=== PATIENT | male | born 1940 | race Caucasian/White ===

== ENCOUNTER 2024-01-18 22:58 | Inpatient (IN) | payer MEDICARE, OTHER ==
[~2024-01-18] VITALS: Ht 170.2 cm; Wt 86.2 kg
[2024-01-18 23:27] LABS: APPEARANCE,URINE CLEAR (CLEAR); BILIRUBIN,URINE NEGATIVE (NEGATIVE); BLOOD, URINE NEGATIVE Ery/uL (NEGATIVE); COLOR,URINE YELLOW (YELLOW); KETONES,URINE NEGATIVE (NEGATIVE); LEUKOCYTE ESTERASE ,URINE NEGATIVE (NEGATIVE); NITRITE, URINE NEGATIVE (NEGATIVE); PH,URINE 7.5 (5.0-8.0); PROTEIN,URINE NEGATIVE (NEGATIVE); UGLUCOSE NEGATIVE (NEGATIVE); UROBILINOGEN,URINE 0.2 EU/dL (0.2)
[2024-01-18 23:34] LABS: BASOPHILS % (AUTO) 0.4 % (0.0-2.0); EOSINOPHILS % (AUTO) 0.5 % (0.0-6.0); HEMATOCRIT 34 % (39-51); HEMOGLOBIN 11.8 g/dL (13.5-17.5); LYMPHOCYTES # (AUTO) 1.2 K/uL (0.8-4.8); LYMPHOCYTES % (AUTO) 17.9 % (20.0-44.0); MEAN CORPUSCULAR HEMOGLOBIN 30 PG (26.0-33.0); MEAN CORPUSCULAR HGB CONC 35 g/dl (31.0-36.0); MEAN CORPUSCULAR VOLUME 87 fL (80-96); MONOCYTES # (AUTO) 0.4 K/uL (0.1-1.30); MONOCYTES % (AUTO) 6.6 % (2.0-12.0); NEUTROPHILS # (AUTO) 5.1 K/uL (1.8-8.9); NEUTROPHILS % (AUTO) 74.6 % (43.0-81.0); PLATELET COUNT (AUTO) 138 K/uL (150-450); RED BLOOD CELL COUNT(AUTO) 3.89 MIL/uL (4.5-6.0); WHITE BLOOD COUNT (AUTO) 6.8 K/uL (4.3-11.0)
[2024-01-18 23:41] LABS: AMPHETAMINE, URINE NEGATIVE (NEGATIVE); BARBITURATE, URINE NEGATIVE (NEGATIVE); BENZODIAZEPINE, URINE NEGATIVE (NEGATIVE); CANNABINOID, URINE NEGATIVE (NEGATIVE); COCCAINE, URINE NEGATIVE (NEGATIVE); OPIATE, URINE NEGATIVE (NEGATIVE); PHENCYCLIDINE SCREEN,URINE NEGATIVE (NEGATIVE)
[2024-01-18 23:47] LABS: ALANINE AMINOTRANSFERASE 21 U/L (12-78); ALBUMIN 3.2 g/dL (3.4-5.0); ALCOHOL, BLOOD < 3 mg/dL (0-10); ALKALINE PHOSPHATASE 55 U/L (46-116); ASPARTATE AMINOTRANSFERASE 16 U/L (15-37); BILIRUBIN,DIRECT 0.2 mg/dL (0.0-0.2); BILIRUBIN,TOTAL 0.7 mg/dL (0.2-1.0); CALCIUM, SERUM 8.4 mg/dL (8.5-10.1); CARBON DIOXIDE 33 mmol/L (21-32); CHLORIDE 109 mmol/L (98-107); GLUCOSE 148 mg/dL (74-106); POTASSIUM 3.6 mmol/L (3.5-5.1); SODIUM SERUM 143 mmol/L (136-145); TOTAL PROTEIN, SERUM 6.3 g/dL (6.4-8.2); UREA NITROGEN, BLOOD 23 mg/dL (7-18)
[2024-01-18 23:49] LABS: ACETAMINOPHEN <10 ug/ml (10-30); SALICYLATE < 0.2 mg/dL (2.8-20.0)
[2024-01-19] MEDS ORDERED: ATOR40TA PO (02:19)
[2024-01-19] MEDS ORDERED: SERT25TA PO (02:19)
[2024-01-19] MEDS ORDERED: AMIO100T4 PO (02:19)
[2024-01-19] MEDS ORDERED: TAMS-12 PO (02:19)
[2024-01-19] MEDS ORDERED: SACU1TAB PO (02:19)
[2024-01-19] MEDS ORDERED: ALBU2.5V38 IH (02:19)
[2024-01-19] MEDS ORDERED: APIX5TAB PO (02:19)
[2024-01-19] MEDS ORDERED: GABA-532 PO (02:19)
[2024-01-19] MEDS ORDERED: FAMO20TA8 PO (02:19)
[2024-01-19] MEDS ORDERED: ISOS10TA2 PO (02:19)
[2024-01-19] MEDS ORDERED: MONT10TA22 PO (02:19)
[2024-01-19] MEDS ORDERED: METO25TA6 PO (02:19)
[2024-01-19] MEDS ORDERED: DIVA250T4 PO (02:19)
[2024-01-19] MEDS ORDERED: LORA-259 PO (03:23)
[2024-01-19] MEDS ORDERED: CALC500T13 PO (03:25)
[2024-01-19] MEDS ORDERED: MULT-225 PO (03:26)
[2024-01-19] MEDS ORDERED: DOCU100C36 PO (03:27)
[2024-01-19] MEDS ORDERED: LORAZEPAM 0.5 MG TABLET PO PRN (03:30)
[2024-01-19] MEDS ORDERED: TEMAZEPAM 7.5 MG CAPSULE PO PRN (03:30)
[2024-01-19] MEDS ORDERED: MAGNESIUM HYDROXIDE 30 ML UDC PO PRN (03:30)
[2024-01-19] MEDS ORDERED: MAG HYDROX/AL HYDROX/SIMETH 30 ML UDC PO PRN (03:30)
[2024-01-19] MEDS: BLOOD SUGAR DIAGNOSTIC 1 EACH STRIP IN ONE (03:44)
[2024-01-19] MEDS ORDERED: DEXTROSE 50%-WATER 50 ML DISP.SYRIN IV PRN (06:30)
[2024-01-19 08:00] VITALS: BP 140/83; TEMP 97.7; O2SAT 96
[2024-01-19] MEDS: BLOOD SUGAR DIAGNOSTIC 1 EACH STRIP IN SCH (08:37)
[2024-01-19] MEDS ORDERED: MULT-213 PO (09:20)
[2024-01-19] MEDS ORDERED: ACET325T53 PO (09:20)
[2024-01-19] MEDS ORDERED: BISA10SU11 RC (09:20)
[2024-01-19] MEDS ORDERED: MAGN400O6 PO (09:20)
[2024-01-19] MEDS ORDERED: LORAZEPAM 1 MG TABLET PO PRN (10:30)
[2024-01-19] MEDS ORDERED: ALBUTEROL FS 2.5 MG/3 ML VIAL.NEB IH PRN (10:30)
[2024-01-19] MEDS ORDERED: BISACODYL SUPP (10 MG) 10 MG/SUPP.RECT SUPP.RECT RC PRN (10:30)
[2024-01-19] MEDS ORDERED: CALCIUM CARBONATE 500 MG TAB.CHEW PO PRN (10:30)
[2024-01-19] MEDS: APIXABAN 5 MG TABLET PO SCH (10:35)
[2024-01-19] MEDS: ISOSORBIDE DINITRATE (10MG) 10 MG TABLET PO SCH (12:07)
[2024-01-19] MEDS: ACETAMINOPHEN 325 MG TABLET PO PRN (12:07)
[2024-01-19] MEDS: GABAPENTIN 100 MG CAPSULE PO SCH (12:07)
[2024-01-19 16:00] VITALS: BP 138/96; TEMP 98; O2SAT 96
[2024-01-19] MEDS: FAMOTIDINE (20 MG) 20 MG TABLET PO SCH (16:32)
[2024-01-19] MEDS: SACUBITRIL/VALSARTAN 24/26MG TABLET PO SCH (16:32)
[2024-01-19] MEDS: METOPROLOL TARTRATE 25 MG TABLET PO SCH (16:32)
[2024-01-19] MEDS: Z GUARD REMEDY 4 OZ OINT TP PRN (16:39)
[2024-01-19 20:00] VITALS: BP 129/74; TEMP 98; O2SAT 99
[2024-01-19] MEDS: VALPROIC ACID 250 MG/5 ML UDC PO SCH (21:21)
[2024-01-19] MEDS: ATORVASTATIN 40 MG TABLET PO SCH (21:22)
[2024-01-19] MEDS: TAMSULOSIN 0.4 MG CAP.SR.24H PO SCH (21:22)
[2024-01-19] MEDS: AMIODARONE HCL 200 MG TABLET PO SCH (21:22)
[2024-01-19] MEDS: INSULIN REGULAR, HUMAN 100 UNIT/ML 3 ML VIAL SQ PRN (21:59)
[2024-01-20 08:00] VITALS: BP 129/65; TEMP 97.8; O2SAT 98
[2024-01-20] MEDS ORDERED: VALPROIC ACID 250 MG/5 ML UDC GT SCH (09:00)
[2024-01-20] MEDS: VALPROIC ACID 250 MG/5 ML UDC PO SCH (09:08)
[2024-01-20] MEDS: DOCUSATE SODIUM 100 MG CAPSULE PO SCH (09:08)
[2024-01-20] MEDS: MONTELUKAST SODIUM (10MG) 10 MG TABLET PO SCH (09:08)
[2024-01-20] MEDS: MULTIVIT W/MINERALS 1 TAB TABLET PO SCH (09:12)
[2024-01-20] MEDS: LORAZEPAM 0.5 MG TABLET PO PRN (13:13)
[2024-01-20 16:00] VITALS: BP 136/77; TEMP 98; O2SAT 96
[2024-01-20 20:35] VITALS: BP 134/78; TEMP 98; O2SAT 98
[2024-01-21 07:43] LABS: BASOPHILS % (AUTO) 0.6 % (0.0-2.0); EOSINOPHILS % (AUTO) 0.9 % (0.0-6.0); HEMATOCRIT 37 % (39-51); HEMOGLOBIN 12.9 g/dL (13.5-17.5); LYMPHOCYTES # (AUTO) 1.3 K/uL (0.8-4.8); MEAN CORPUSCULAR HEMOGLOBIN 30 PG (26.0-33.0); MEAN CORPUSCULAR HGB CONC 35 g/dl (31.0-36.0); MEAN CORPUSCULAR VOLUME 87 fL (80-96); MONOCYTES # (AUTO) 0.3 K/uL (0.1-1.30); MONOCYTES % (AUTO) 7.4 % (2.0-12.0); NEUTROPHILS # (AUTO) 2.5 K/uL (1.8-8.9); NEUTROPHILS % (AUTO) 60.1 % (43.0-81.0); PLATELET COUNT (AUTO) 149 K/uL (150-450); RED BLOOD CELL COUNT(AUTO) 4.31 MIL/uL (4.5-6.0); RED CELL DISTRIBUTION WIDTH 15.8 % (11.5-15.0); WHITE BLOOD COUNT (AUTO) 4.1 K/uL (4.3-11.0)
[2024-01-21 08:00] VITALS: BP 159/78; TEMP 98.4; O2SAT 93
[2024-01-21 08:05] LABS: THYROID STIMULATING HORMONE 14.93 uIU/mL (0.358-3.74)
[2024-01-21 13:56] LABS: CHOLESTEROL 158 mg/dL (<200); HDL CHOLESTEROL 67 mg/dL (40-60); LDL 72 mg/dL (0-99); TRIGLYCERIDES 57 mg/dL (30-150)
[2024-01-21 15:52] VITALS: BP 143/75; TEMP 98.6; O2SAT 96
[2024-01-21 20:36] VITALS: BP 156/86; TEMP 98.2; O2SAT 96
[2024-01-22 08:00] VITALS: BP 140/84; TEMP 98.7; O2SAT 96
[2024-01-22] MEDS: LEVOTHYROXINE SODIUM 50 MCG TABLET PO SCH (09:30)
[2024-01-22 16:00] VITALS: BP 158/79; TEMP 98; O2SAT 97
[2024-01-22 21:14] VITALS: BP 143/82; TEMP 98; O2SAT 96
[2024-01-22] MEDS: TEMAZEPAM 7.5 MG CAPSULE PO PRN (21:43)
[2024-01-23 07:09] LABS: BASOPHILS % (AUTO) 0.3 % (0.0-2.0); EOSINOPHILS % (AUTO) 0.6 % (0.0-6.0); HEMATOCRIT 38 % (39-51); HEMOGLOBIN 13.2 g/dL (13.5-17.5); LYMPHOCYTES # (AUTO) 1.4 K/uL (0.8-4.8); LYMPHOCYTES % (AUTO) 22.1 % (20.0-44.0); MEAN CORPUSCULAR HEMOGLOBIN 30 PG (26.0-33.0); MEAN CORPUSCULAR HGB CONC 34 g/dl (31.0-36.0); MEAN CORPUSCULAR VOLUME 89 fL (80-96); MONOCYTES # (AUTO) 0.5 K/uL (0.1-1.30); MONOCYTES % (AUTO) 7.9 % (2.0-12.0); NEUTROPHILS # (AUTO) 4.4 K/uL (1.8-8.9); NEUTROPHILS % (AUTO) 69.1 % (43.0-81.0); PLATELET COUNT (AUTO) 132 K/uL (150-450); RED BLOOD CELL COUNT(AUTO) 4.33 MIL/uL (4.5-6.0); RED CELL DISTRIBUTION WIDTH 16.1 % (11.5-15.0); WHITE BLOOD COUNT (AUTO) 6.4 K/uL (4.3-11.0)
[2024-01-23 07:49] LABS: CALCIUM, SERUM 9.2 mg/dL (8.5-10.1); CARBON DIOXIDE 29 mmol/L (21-32); CHLORIDE 106 mmol/L (98-107); CREATININE 1.1 mg/dL (0.6-1.3); GLUCOSE 139 mg/dL (74-106); PHOSPHORUS 3.9 mg/dL (2.5-4.9); POTASSIUM 3.6 mmol/L (3.5-5.1); SODIUM SERUM 143 mmol/L (136-145); UREA NITROGEN, BLOOD 29 mg/dL (7-18)
[2024-01-23 08:00] VITALS: BP 130/81; TEMP 98.7; O2SAT 97
[2024-01-23 09:08] LABS: FOLIC ACID 9.5 ng/mL (>3.0)
[2024-01-23 16:00] VITALS: BP 124/90; TEMP 98.7; O2SAT 97
[2024-01-24 08:00] VITALS: BP 104/66; TEMP 98.7; O2SAT 97
[2024-01-24 16:00] VITALS: BP 100/56; TEMP 98.7; O2SAT 98
[2024-01-24 20:00] VITALS: BP 149/76; TEMP 98.5; O2SAT 96
[2024-01-25 08:00] VITALS: BP 138/64; TEMP 97.7; O2SAT 96
[2024-01-25 16:29] VITALS: BP_SYST 136; BP_SYST 138; BP_DIAS 117; BP_DIAS 64; TEMP 97.9; O2SAT 97
[2024-01-25 20:00] VITALS: BP 144/87; TEMP 98.2; O2SAT 96
[2024-01-26 08:00] VITALS: BP 109/74; TEMP 97.7; O2SAT 98
[2024-01-26] MEDS: FUROSEMIDE 20 MG TABLET PO SCH (13:36)
[2024-01-26 16:00] VITALS: BP 133/82; TEMP 98.7; O2SAT 97
[2024-01-26 20:00] VITALS: BP 142/89; TEMP 98.3; O2SAT 95
[2024-01-27 08:00] VITALS: BP 111/85; TEMP 97.8; O2SAT 97
[2024-01-27 16:00] VITALS: BP 123/62; TEMP 98.2; O2SAT 97
[2024-01-27 17:02] LABS: BASOPHILS % (AUTO) 0.4 % (0.0-2.0); EOSINOPHILS % (AUTO) 0.3 % (0.0-6.0); HEMATOCRIT 38 % (39-51); LYMPHOCYTES # (AUTO) 1.5 K/uL (0.8-4.8); LYMPHOCYTES % (AUTO) 20.6 % (20.0-44.0); MEAN CORPUSCULAR HEMOGLOBIN 30 PG (26.0-33.0); MEAN CORPUSCULAR HGB CONC 35 g/dl (31.0-36.0); MEAN CORPUSCULAR VOLUME 87 fL (80-96); MONOCYTES # (AUTO) 0.4 K/uL (0.1-1.30); MONOCYTES % (AUTO) 5.9 % (2.0-12.0); NEUTROPHILS # (AUTO) 5.2 K/uL (1.8-8.9); NEUTROPHILS % (AUTO) 72.8 % (43.0-81.0); PLATELET COUNT (AUTO) 159 K/uL (150-450); RED BLOOD CELL COUNT(AUTO) 4.32 MIL/uL (4.5-6.0); RED CELL DISTRIBUTION WIDTH 15.9 % (11.5-15.0); WHITE BLOOD COUNT (AUTO) 7.1 K/uL (4.3-11.0)
[2024-01-27 17:24] LABS: CALCIUM, SERUM 9.1 mg/dL (8.5-10.1); CREATININE 1.6 mg/dL (0.6-1.3); POTASSIUM 3.8 mmol/L (3.5-5.1)
[2024-01-27 20:48] VITALS: BP 119/72; TEMP 98.2; O2SAT 97
[2024-01-28 08:00] VITALS: BP 126/82; TEMP 97.6; O2SAT 100
[2024-01-28 16:08] VITALS: BP 92/72; TEMP 97.8; O2SAT 96
[2024-01-28 20:27] VITALS: BP 140/89; TEMP 98; O2SAT 97
[2024-01-29 08:00] VITALS: BP 149/82; TEMP 97.9; O2SAT 98
[2024-01-29 16:00] VITALS: BP 140/87; TEMP 98.6; O2SAT 100
[2024-01-29 21:19] VITALS: BP 141/81; TEMP 98.6; O2SAT 96
[2024-01-30 07:29] LABS: CALCIUM, SERUM 8.4 mg/dL (8.5-10.1); CARBON DIOXIDE 32 mmol/L (21-32); CHLORIDE 105 mmol/L (98-107); CREATININE 1.4 mg/dL (0.6-1.3); GLUCOSE 145 mg/dL (74-106); POTASSIUM 3.8 mmol/L (3.5-5.1); SODIUM SERUM 143 mmol/L (136-145); UREA NITROGEN, BLOOD 35 mg/dL (7-18)
[2024-01-30 07:50] LABS: VALPROIC ACID 46 ug/mL (50-100)
[2024-01-30 08:00] VITALS: BP 137/70; TEMP 98.7; O2SAT 100
[2024-01-30 16:00] VITALS: BP 137/67; TEMP 98.6; O2SAT 98
[2024-01-30 21:16] VITALS: BP 123/66; TEMP 98.9; O2SAT 97
[2024-01-31 08:00] VITALS: BP 151/94; TEMP 98; O2SAT 98
[2024-01-31 16:00] VITALS: BP 160/86; TEMP 98.6; O2SAT 98
[2024-01-31 20:32] VITALS: BP 145/129; TEMP 98.3; O2SAT 97
[2024-01-31 21:25] VITALS: BP 147/76; TEMP 98; O2SAT 97
[2024-02-01 08:31] VITALS: BP 158/100; TEMP 98.4; O2SAT 98
[2024-02-01 08:47] VITALS: BP 126/68
[2024-02-01 12:51] VITALS: BP 120/75
== END 2024-02-01 13:45 | DRG 885 ==
LOC: ER 23:18 → GPS 01-19 01:13
PROVIDERS: ADMIT Psychiatry & Neurology Psychosomatic Medicine; ATTEND Nurse Practitioner Acute Care
DX: F39 Unspecified mood [affective] disorder (principal); I11.0 Hypertensive heart disease with heart failure; N17.0 Acute kidney failure with tubular necrosis; G93.41 Metabolic encephalopathy; D68.69 Other thrombophilia; E44.1 Mild protein-calorie malnutrition; F03.93 Unspecified dementia, unspecified severity, with mood disturbance; I42.9 Cardiomyopathy, unspecified; R47.01 Aphasia; I50.22 Chronic systolic (congestive) heart failure; F33.9 Major depressive disorder, recurrent, unspecified; F29 Unspecified psychosis not due to a substance or known physiological condition; E78.5 Hyperlipidemia, unspecified; F03.90 Unspecified dementia, unspecified severity, without behavioral disturbance, psychotic disturbance, mood disturbance, and anxiety; D64.9 Anemia, unspecified; E03.9 Hypothyroidism, unspecified; E66.01 Morbid (severe) obesity due to excess calories; E88.09 Other disorders of plasma-protein metabolism, not elsewhere classified; Z86.73 Personal history of transient ischemic attack (TIA), and cerebral infarction without residual deficits; Z95.0 Presence of cardiac pacemaker; Z20.822 Contact with and (suspected) exposure to COVID-19; E11.40 Type 2 diabetes mellitus with diabetic neuropathy, unspecified; R13.10 Dysphagia, unspecified; Z68.29 Body mass index [BMI] 29.0-29.9, adult; Z73.6 Limitation of activities due to disability; N40.0 Benign prostatic hyperplasia without lower urinary tract symptoms; I48.91 Unspecified atrial fibrillation
CPT/HCPCS: 36415; 70450-TC; 71045-TC; 80048-TC; 80061-TC; 80076-TC; 80164-TC; 82607-TC; 82962-TC; 83735-TC; 83880; 83921; 84100-TC; 84425; 84439-TC; 84443-TC; 85025-TC; 87081-TC; 92526; 92611-TC; 93307-TC; 94760-TC; 97110-TC; 97112-TC; 97116-TC; 97530-TC; G0480; J1815

== ENCOUNTER 2024-07-21 15:00 | Inpatient (IN) | payer MEDICARE, MEDICAID ==
[~2024-07-21] VITALS: Ht 165.1 cm; Wt 83.0 kg
[~2024-07-21 15:00] MED LIST: ACET325T53 PO; ALBU2.5V38 IH; AMIO100T4 PO; APIX5TAB PO; ATOR40TA PO; BISA10SU11 RC; CALC500T13 PO; DIVA250T4 PO; DOCU100C36 PO; FAMO20TA8 PO; GABA-532 PO; ISOS10TA2 PO; LORA-259 PO; MAGN400O6 PO; METO25TA6 PO; MONT10TA22 PO; MULT-213 PO; SACU1TAB PO; SERT25TA PO; TAMS-12 PO
[2024-07-21 15:27] LABS: BASOPHILS % (AUTO) 0.5 % (0.0-2.0); EOSINOPHILS % (AUTO) 0.5 % (0.0-6.0); HEMATOCRIT 38 % (39-51); HEMOGLOBIN 12.8 g/dL (13.5-17.5); LYMPHOCYTES # (AUTO) 1.5 K/uL (0.8-4.8); LYMPHOCYTES % (AUTO) 22.6 % (20.0-44.0); MEAN CORPUSCULAR HEMOGLOBIN 32 PG (26.0-33.0); MEAN CORPUSCULAR HGB CONC 34 g/dl (31.0-36.0); MEAN CORPUSCULAR VOLUME 94 fL (80-96); MONOCYTES # (AUTO) 0.4 K/uL (0.1-1.30); MONOCYTES % (AUTO) 6.7 % (2.0-12.0); NEUTROPHILS # (AUTO) 4.5 K/uL (1.8-8.9); NEUTROPHILS % (AUTO) 69.7 % (43.0-81.0); PLATELET COUNT (AUTO) 168 K/uL (150-450); RED BLOOD CELL COUNT(AUTO) 4.06 MIL/uL (4.5-6.0); RED CELL DISTRIBUTION WIDTH 15.3 % (11.5-15.0); WHITE BLOOD COUNT (AUTO) 6.5 K/uL (4.3-11.0)
[2024-07-21] MEDS ORDERED: AMLO-212 PO (15:33)
[2024-07-21] MEDS ORDERED: ACET-73 PO (15:33)
[2024-07-21] MEDS ORDERED: EMPA10TA PO (15:33)
[2024-07-21] MEDS ORDERED: LEVO75TA7 PO (15:33)
[2024-07-21] MEDS ORDERED: FURO20TA4 PO (15:33)
[2024-07-21] MEDS ORDERED: FINA5TAB11 PO (15:33)
[2024-07-21] MEDS ORDERED: MAG30ORA PO (15:33)
[2024-07-21] MEDS ORDERED: TEMA7.5C PO (15:33)
[2024-07-21 15:35] LABS: CALCIUM, SERUM 8.7 mg/dL (8.5-10.1); CARBON DIOXIDE 30 mmol/L (21-32); CHLORIDE 105 mmol/L (98-107); CREATININE 1.3 mg/dL (0.6-1.3); GLUCOSE 182 mg/dL (74-106); POTASSIUM 3.7 mmol/L (3.5-5.1); SODIUM SERUM 140 mmol/L (136-145); UREA NITROGEN, BLOOD 31 mg/dL (7-18)
[2024-07-21 15:44] LABS: ACETAMINOPHEN < 10 ug/ml (10-30); ALANINE AMINOTRANSFERASE 7 U/L (12-78); ALBUMIN 3.4 g/dL (3.4-5.0); ALCOHOL, BLOOD < 3 mg/dL (0-10); ALKALINE PHOSPHATASE 50 U/L (46-116); ASPARTATE AMINOTRANSFERASE 8 U/L (15-37); BILIRUBIN,DIRECT 0.2 mg/dL (0.0-0.2); BILIRUBIN,TOTAL 0.5 mg/dL (0.2-1.0); TOTAL PROTEIN, SERUM 6.9 g/dL (6.4-8.2)
[2024-07-21 15:45] LABS: SALICYLATE 1.1 mg/dL (2.8-20.0)
[2024-07-21 18:35] LABS: APPEARANCE,URINE SLIGHTLY CLOUDY (CLEAR); BILIRUBIN,URINE NEGATIVE (NEGATIVE); BLOOD, URINE 2+ Ery/uL (NEGATIVE); COLOR,URINE YELLOW (YELLOW); KETONES,URINE NEGATIVE (NEGATIVE); LEUKOCYTE ESTERASE ,URINE 1+ (NEGATIVE); NITRITE, URINE NEGATIVE (NEGATIVE); PROTEIN,URINE 1+ mg/dl (NEGATIVE); UGLUCOSE 3+ mg/dL (NEGATIVE)
[2024-07-21 18:44] LABS: AMPHETAMINE, URINE NEGATIVE (NEGATIVE); BARBITURATE, URINE NEGATIVE (NEGATIVE); BENZODIAZEPINE, URINE NEGATIVE (NEGATIVE); CANNABINOID, URINE NEGATIVE (NEGATIVE); COCCAINE, URINE NEGATIVE (NEGATIVE); OPIATE, URINE NEGATIVE (NEGATIVE); PHENCYCLIDINE SCREEN,URINE NEGATIVE (NEGATIVE)
[2024-07-21 18:52] LABS: WBC,URINE TOO NUMEROUS TO COUN /HPF (0-3)
[2024-07-21 18:53] LABS: ADD URINE CULTURE YES; BACTERIA,URINE Many /HPF (None Seen); RBC,URINE TOO NUMEROUS TO COUN /HPF (0-2); SQUAMOUS EPITHELIAL CELL,UR Few /HPF (None Seen)
[2024-07-21] MEDS ORDERED: NITROFURANTOIN/MONOHYDRATE MACROCRYSTALS 100 MG CAPSULE ONE (20:35)
[2024-07-21] MEDS: NITROFURANTOIN/MONOHYDRATE MACROCRYSTALS 100 MG CAPSULE PO ONE (20:40)
[2024-07-21] MEDS: BLOOD SUGAR DIAGNOSTIC 1 EACH STRIP IN ONE (21:53)
[2024-07-21] MEDS ORDERED: ACETAMINOPHEN 325 MG TABLET PO PRN (22:00)
[2024-07-21] MEDS ORDERED: MAGNESIUM HYDROXIDE 30 ML UDC PO PRN ×2 (22:00)
[2024-07-21] MEDS ORDERED: MAG HYDROX/AL HYDROX/SIMETH 30 ML UDC PO PRN (22:00)
[2024-07-21] MEDS: TAMSULOSIN 0.4 MG CAP.SR.24H PO SCH (22:25)
[2024-07-21] MEDS: LORAZEPAM 0.5 MG TABLET PO PRN (22:26)
[2024-07-21] MEDS: ATORVASTATIN 40 MG TABLET PO SCH (22:26)
[2024-07-22] MEDS: TEMAZEPAM 7.5 MG CAPSULE PO PRN ×2 (02:08→21:49)
[2024-07-22 02:12] VITALS: BP 136/90; TEMP 98.2; O2SAT 97
[2024-07-22] MEDS: LEVOTHYROXINE SODIUM 75 MCG TABLET PO SCH (07:30)
[2024-07-22 08:00] VITALS: BP 125/68; TEMP 97.7; O2SAT 98
[2024-07-22] MEDS: AMLODIPINE BESYLATE 5 MG TABLET PO SCH (09:00)
[2024-07-22] MEDS: FAMOTIDINE (20 MG) 20 MG TABLET PO SCH (09:00)
[2024-07-22] MEDS: SACUBITRIL/VALSARTAN 24/26MG TABLET PO SCH (09:00)
[2024-07-22] MEDS: DOCUSATE SODIUM 100 MG CAPSULE PO SCH (09:00)
[2024-07-22] MEDS: APIXABAN 5 MG TABLET PO SCH (09:00)
[2024-07-22] MEDS: MONTELUKAST SODIUM (10MG) 10 MG TABLET PO SCH (09:00)
[2024-07-22] MEDS: FUROSEMIDE 20 MG TABLET PO SCH (09:00)
[2024-07-22] MEDS: FINASTERIDE (5 MG) 5 MG TABLET PO SCH (09:00)
[2024-07-22] MEDS: NITROFURANTOIN/MONOHYDRATE MACROCRYSTALS 100 MG CAPSULE PO SCH (09:00)
[2024-07-22] MEDS: METOPROLOL TARTRATE 25 MG TABLET PO SCH (09:00)
[2024-07-22] MEDS: AMIODARONE HCL 200 MG TABLET PO SCH (09:00)
[2024-07-22] MEDS: ISOSORBIDE DINITRATE (10MG) 10 MG TABLET PO SCH (09:00)
[2024-07-22 13:18] LABS: ALANINE AMINOTRANSFERASE < 6 U/L (12-78); ALBUMIN 3.7 g/dL (3.4-5.0); ALKALINE PHOSPHATASE 54 U/L (46-116); ASPARTATE AMINOTRANSFERASE 7 U/L (15-37); BILIRUBIN,TOTAL 0.5 mg/dL (0.2-1.0); CALCIUM, SERUM 8.8 mg/dL (8.5-10.1); CARBON DIOXIDE 27 mmol/L (21-32); CHLORIDE 103 mmol/L (98-107); CREATININE 1.1 mg/dL (0.6-1.3); GLUCOSE 211 mg/dL (74-106); POTASSIUM 3.7 mmol/L (3.5-5.1); SODIUM SERUM 138 mmol/L (136-145); TOTAL PROTEIN, SERUM 7.4 g/dL (6.4-8.2); UREA NITROGEN, BLOOD 28 mg/dL (7-18)
[2024-07-22 13:32] LABS: CHOLESTEROL 139 mg/dL (<200); HDL CHOLESTEROL 70 mg/dL (40-60); LDL 57 mg/dL (0-99); TRIGLYCERIDES 54 mg/dL (30-150)
[2024-07-22 15:37] VITALS: BP 138/91; TEMP 97.7; O2SAT 98
[2024-07-22 16:00] VITALS: BP 138/91; TEMP 97.7; O2SAT 98
[2024-07-22] MEDS: DIVALPROEX SODIUM 125 MG CAP.SPRINK PO SCH (16:18)
[2024-07-22 20:20] VITALS: BP 131/90; TEMP 97.8; O2SAT 95
[2024-07-22] MEDS ORDERED: DIVALPROEX SODIUM 125 MG CAP.SPRINK PO SCH (21:00)
[2024-07-23 08:00] VITALS: BP 143/90; TEMP 97.8; O2SAT 97
[2024-07-23 16:00] VITALS: BP 115/79; TEMP 99; O2SAT 99
[2024-07-23 20:19] VITALS: BP 118/87; TEMP 98.4; O2SAT 99
[2024-07-23] MEDS ORDERED: QUETIAPINE FUMARATE 25 MG TABLET PO SCH (22:00)
[2024-07-24 08:00] VITALS: BP 130/65; TEMP 98.1; O2SAT 99
[2024-07-24] MEDS: LORAZEPAM 0.5 MG TABLET PO PRN (13:24)
[2024-07-24 15:58] VITALS: TEMP 98.1; O2SAT 99
[2024-07-24 20:05] VITALS: BP 128/83; TEMP 98.4; O2SAT 100
[2024-07-25 08:00] VITALS: BP 152/68; TEMP 98; O2SAT 97
[2024-07-25 16:00] VITALS: BP 115/86; TEMP 98.6; O2SAT 99
[2024-07-25 20:00] VITALS: BP 143/80; TEMP 97.5; O2SAT 98
[2024-07-26 07:57] LABS: VALPROIC ACID 35 ug/mL (50-100)
[2024-07-26 08:00] VITALS: BP 139/67; TEMP 97.8; O2SAT 98
[2024-07-26 08:20] LABS: SERUM AMMONIA 14 umol/L (11-32)
[2024-07-26 16:00] VITALS: BP 112/82; TEMP 97.5; O2SAT 97
[2024-07-26 20:59] VITALS: BP 138/69; TEMP 97.8; O2SAT 98
[2024-07-27 08:00] VITALS: BP 113/68; TEMP 97.6; O2SAT 97
[2024-07-27 15:23] LABS: APPEARANCE,URINE CLEAR (CLEAR); BILIRUBIN,URINE NEGATIVE (NEGATIVE); BLOOD, URINE 1+ Ery/uL (NEGATIVE); COLOR,URINE DARK YELLOW (YELLOW); KETONES,URINE TRACE mg/dL (NEGATIVE); LEUKOCYTE ESTERASE ,URINE TRACE (NEGATIVE); NITRITE, URINE NEGATIVE (NEGATIVE); PH,URINE 5.5 (5.0-8.0); PROTEIN,URINE 2+ mg/dl (NEGATIVE); UGLUCOSE 2+ mg/dL (NEGATIVE); UROBILINOGEN,URINE 0.2 EU/dL (0.2)
[2024-07-27 15:48] LABS: ADD URINE CULTURE YES; BACTERIA,URINE Few /HPF (None Seen)
[2024-07-27 15:49] LABS: MUCUS,URINE Few /LPF (None Seen)
[2024-07-27 16:00] VITALS: BP 124/71; TEMP 98.6; O2SAT 98
[2024-07-27 20:12] VITALS: BP 127/92; TEMP 98; O2SAT 96
[2024-07-28 07:44] LABS: CALCIUM, SERUM 8.7 mg/dL (8.5-10.1); CREATININE 1.3 mg/dL (0.6-1.3); POTASSIUM 3.8 mmol/L (3.5-5.1)
[2024-07-28 08:00] VITALS: BP 100/55; TEMP 98.6; O2SAT 100
[2024-07-28 08:00] LABS: THYROID STIMULATING HORMONE 13.32 uIU/mL (0.358-3.74)
[2024-07-28 15:24] VITALS: BP 111/67; TEMP 97.7; O2SAT 95
[2024-07-28 20:46] VITALS: BP 136/62; TEMP 97.7; O2SAT 98
[2024-07-29] MEDS: LEVOTHYROXINE SODIUM 88 MCG TABLET PO SCH (07:30)
[2024-07-29 08:00] VITALS: BP 128/75; TEMP 98.6; O2SAT 98
[2024-07-29 16:00] VITALS: BP 132/87; TEMP 98.8; O2SAT 100
[2024-07-29 20:30] VITALS: BP 149/76; TEMP 98.3; O2SAT 97
[2024-07-30 08:00] VITALS: BP 144/84; TEMP 97.8; O2SAT 97
[2024-07-30] MEDS: DIVALPROEX SODIUM 125 MG CAP.SPRINK PO SCH (12:24)
[2024-07-30 16:02] VITALS: BP 141/95; TEMP 97.8; O2SAT 97
[2024-07-30 20:16] VITALS: BP 124/71; TEMP 97.8; O2SAT 98
[2024-07-31 08:00] VITALS: BP 128/82; TEMP 98.1; O2SAT 98
[2024-07-31] MEDS: ACETAMINOPHEN 325 MG TABLET PO PRN (09:06)
[2024-07-31 12:24] LABS: BASOPHILS # (AUTO) 0.1 K/uL (0.0-0.2); BASOPHILS % (AUTO) 1.3 % (0.0-2.0); EOSINOPHILS # (AUTO) 0.9 K/uL (0.0-0.7); EOSINOPHILS % (AUTO) 11.9 % (0.0-6.0); HEMATOCRIT 43 % (39-51); HEMOGLOBIN 13.7 g/dL (13.5-17.5); LYMPHOCYTES # (AUTO) 1.4 K/uL (0.8-4.8); LYMPHOCYTES % (AUTO) 18.2 % (20.0-44.0); MEAN CORPUSCULAR HEMOGLOBIN 22 PG (26.0-33.0); MEAN CORPUSCULAR HGB CONC 32 g/dl (31.0-36.0); MEAN CORPUSCULAR VOLUME 69 fL (80-96); MONOCYTES # (AUTO) 0.6 K/uL (0.1-1.30); MONOCYTES % (AUTO) 7.9 % (2.0-12.0); NEUTROPHILS # (AUTO) 4.6 K/uL (1.8-8.9); NEUTROPHILS % (AUTO) 60.7 % (43.0-81.0); PLATELET COUNT (AUTO) 261 K/uL (150-450); WHITE BLOOD COUNT (AUTO) 7.6 K/uL (4.3-11.0)
[2024-07-31 12:27] LABS: CALCIUM, SERUM 8.9 mg/dL (8.5-10.1); CREATININE 0.6 mg/dL (0.6-1.3); POTASSIUM 4.7 mmol/L (3.5-5.1)
[2024-07-31 12:33] LABS: ALBUMIN 3.9 g/dL (3.4-5.0); BILIRUBIN,TOTAL 0.4 mg/dL (0.2-1.0); TOTAL PROTEIN, SERUM 7.7 g/dL (6.4-8.2)
[2024-07-31 16:00] VITALS: BP 108/83; TEMP 98.2; O2SAT 98
[2024-07-31] MEDS ORDERED: DIVALPROEX SODIUM 250 MG TABLET.DR PO SCH (17:00)
[2024-07-31 19:57] VITALS: BP 118/84; TEMP 98.2; O2SAT 99
[2024-08-01 08:00] VITALS: BP 137/72; TEMP 97.8; O2SAT 94
[2024-08-01 08:19] LABS: BASOPHILS % (AUTO) 0.5 % (0.0-2.0); EOSINOPHILS # (AUTO) 0.1 K/uL (0.0-0.7); EOSINOPHILS % (AUTO) 0.9 % (0.0-6.0); HEMATOCRIT 36 % (39-51); HEMOGLOBIN 12.3 g/dL (13.5-17.5); LYMPHOCYTES % (AUTO) 29.3 % (20.0-44.0); MEAN CORPUSCULAR HEMOGLOBIN 32 PG (26.0-33.0); MEAN CORPUSCULAR HGB CONC 34 g/dl (31.0-36.0); MEAN CORPUSCULAR VOLUME 92 fL (80-96); MONOCYTES # (AUTO) 0.5 K/uL (0.1-1.30); MONOCYTES % (AUTO) 6.5 % (2.0-12.0); NEUTROPHILS # (AUTO) 4.4 K/uL (1.8-8.9); NEUTROPHILS % (AUTO) 62.8 % (43.0-81.0); PLATELET COUNT (AUTO) 152 K/uL (150-450); RED CELL DISTRIBUTION WIDTH 14.9 % (11.5-15.0)
[2024-08-01] MEDS: DIVALPROEX SODIUM 125 MG CAP.SPRINK PO SCH (08:50)
[2024-08-01 08:51] VITALS: BP 137/72
[2024-08-01 09:40] LABS: CALCIUM, SERUM 8.7 mg/dL (8.5-10.1); POTASSIUM 3.7 mmol/L (3.5-5.1)
== END 2024-08-01 13:20 | DRG 885 ==
LOC: ER 15:13 → GPS 20:03
PROVIDERS: ADMIT Psychiatry & Neurology Psychosomatic Medicine; ATTEND Internal Medicine
DX: F39 Unspecified mood [affective] disorder (principal); N17.0 Acute kidney failure with tubular necrosis; N39.0 Urinary tract infection, site not specified; I42.9 Cardiomyopathy, unspecified; F03.93 Unspecified dementia, unspecified severity, with mood disturbance; F33.9 Major depressive disorder, recurrent, unspecified; I13.0 Hypertensive heart and chronic kidney disease with heart failure and stage 1 through stage 4 chronic kidney disease, or unspecified chronic kidney disease; I50.22 Chronic systolic (congestive) heart failure; F29 Unspecified psychosis not due to a substance or known physiological condition; I48.91 Unspecified atrial fibrillation; D64.9 Anemia, unspecified; E03.9 Hypothyroidism, unspecified; E66.9 Obesity, unspecified; E78.5 Hyperlipidemia, unspecified; Z79.01 Long term (current) use of anticoagulants; Z79.84 Long term (current) use of oral hypoglycemic drugs; Z79.899 Other long term (current) drug therapy; Z95.0 Presence of cardiac pacemaker; I48.0 Paroxysmal atrial fibrillation; Z20.822 Contact with and (suspected) exposure to COVID-19; F03.90 Unspecified dementia, unspecified severity, without behavioral disturbance, psychotic disturbance, mood disturbance, and anxiety; R73.03 Prediabetes; Z73.6 Limitation of activities due to disability; Z68.30 Body mass index [BMI] 30.0-30.9, adult; N40.1 Benign prostatic hyperplasia with lower urinary tract symptoms; E86.9 Volume depletion, unspecified
CPT/HCPCS: 36415; 71045-TC; 80048-TC; 80053-TC; 80061-TC; 80076-TC; 80164-TC; 81001; 82140-TC; 82962-TC; 84443-TC; 85025-TC; 87081-TC; 87086-TC; 97110-TC; 97112-TC; 97116-TC; 97530-TC; G0480

== ENCOUNTER 2024-09-02 13:38 | Inpatient (IN) | payer MEDICARE, OTHER ==
[~2024-09-02] VITALS: Ht 167.6 cm; Wt 78.0 kg
[~2024-09-02 13:38] MED LIST changes: +ACET-73 PO; -ALBU2.5V38 IH; +AMLO-212 PO; +EMPA10TA PO; +FINA5TAB11 PO; +FURO20TA4 PO; -GABA-532 PO; +LEVO75TA7 PO; +MAG30ORA PO; -SERT25TA PO; +TEMA7.5C PO
[2024-09-02 14:05] LABS: PLATELET COUNT (AUTO) 179 K/uL (150-450); RED BLOOD CELL COUNT(AUTO) 4.27 MIL/uL (4.5-6.0); RED CELL DISTRIBUTION WIDTH 15.1 % (11.5-15.0); WHITE BLOOD COUNT (AUTO) 7.1 K/uL (4.3-11.0)
[2024-09-02 14:14] LABS: CALCIUM, SERUM 8.6 mg/dL (8.5-10.1); CREATININE 1.1 mg/dL (0.6-1.3); SODIUM SERUM 143 mmol/L (136-145); UREA NITROGEN, BLOOD 36 mg/dL (7-18)
[2024-09-02 14:20] LABS: ALCOHOL, BLOOD < 3 mg/dL (0-10); ASPARTATE AMINOTRANSFERASE 8 U/L (15-37); TOTAL PROTEIN, SERUM 6.9 g/dL (6.4-8.2)
[2024-09-02] MEDS ORDERED: OLANZAPINE 10 MG VIAL IM ONE (14:23)
[2024-09-02] MEDS: OLANZAPINE 10 MG VIAL IM ONE (14:27)
[2024-09-02] MEDS ORDERED: LEVO88TA5 PO (16:15)
[2024-09-02] MEDS ORDERED: GLUC1KIT IN (16:15)
[2024-09-02 16:40] LABS: APPEARANCE,URINE CLEAR (CLEAR); BLOOD, URINE Moderate Ery/uL (NEGATIVE); LEUKOCYTE ESTERASE ,URINE Trace (NEGATIVE); UGLUCOSE >=1000 mg/dL (NEGATIVE)
[2024-09-02 16:41] LABS: NITRITE, URINE NEGATIVE (NEGATIVE)
[2024-09-02 16:42] LABS: ADD URINE CULTURE YES; SQUAMOUS EPITHELIAL CELL,UR None Seen /HPF (None Seen); URINE AMORPHOUS PHOSPHATES Few /HPF (None Seen)
[2024-09-02 17:03] LABS: AMPHETAMINE, URINE NEGATIVE (NEGATIVE); BARBITURATE, URINE NEGATIVE (NEGATIVE); BENZODIAZEPINE, URINE NEGATIVE (NEGATIVE); CANNABINOID, URINE NEGATIVE (NEGATIVE); COCCAINE, URINE NEGATIVE (NEGATIVE); OPIATE, URINE NEGATIVE (NEGATIVE)
[2024-09-02] MEDS ORDERED: ACETAMINOPHEN 325 MG TABLET PO PRN (17:30)
[2024-09-02] MEDS ORDERED: LORAZEPAM 0.5 MG TABLET PO PRN (17:30)
[2024-09-02] MEDS ORDERED: MAG HYDROX/AL HYDROX/SIMETH 30 ML UDC PO PRN (17:30)
[2024-09-02] MEDS ORDERED: MAGNESIUM HYDROXIDE 30 ML UDC PO PRN ×2 (17:30→22:30)
[2024-09-02 17:44] VITALS: BP 141/73; TEMP 97.7; O2SAT 95
[2024-09-02 20:02] VITALS: BP 97/66; TEMP 97.5; O2SAT 95
[2024-09-02] MEDS: BLOOD SUGAR DIAGNOSTIC 1 EACH STRIP IN ONE (20:04)
[2024-09-02] MEDS ORDERED: BISACODYL SUPP (10 MG) 10 MG/SUPP.RECT SUPP.RECT RC PRN (22:30)
[2024-09-02] MEDS ORDERED: LORAZEPAM 1 MG TABLET PO PRN (22:30)
[2024-09-02] MEDS ORDERED: ACETAMINOPHEN ES 500 MG TABLET PO PRN (22:30)
[2024-09-02] MEDS: CEPHALEXIN MONOHYDRATE 500 MG CAPSULE PO SCH (22:49)
[2024-09-02] MEDS ORDERED: GLUCAGON,HUMAN RECOMBINANT 1 MG/VIAL VIAL IM PRN (23:00)
[2024-09-02] MEDS: ACETAMINOPHEN 325 MG TABLET PO PRN (23:01)
[2024-09-03 07:54] LABS: ASPARTATE AMINOTRANSFERASE 8.0 U/L (15-37); CALCIUM, SERUM 8.5 mg/dL (8.5-10.1); CREATININE 1.0 mg/dL (0.6-1.3); SODIUM SERUM 143.0 mmol/L (136-145); TOTAL PROTEIN, SERUM 6.4 g/dL (6.4-8.2); UREA NITROGEN, BLOOD 36.0 mg/dL (7-18)
[2024-09-03 07:57] LABS: LDL 61 mg/dL (0-99)
[2024-09-03 08:11] VITALS: BP 134/67; TEMP 97.7; O2SAT 98
[2024-09-03] MEDS: EMPAGLIFLOZIN 10 MG TABLET PO SCH (09:00)
[2024-09-03] MEDS: FUROSEMIDE 20 MG TABLET PO SCH (09:17)
[2024-09-03] MEDS: MONTELUKAST SODIUM (10MG) 10 MG TABLET PO SCH (09:18)
[2024-09-03] MEDS: ISOSORBIDE DINITRATE (10MG) 10 MG TABLET PO SCH (09:18)
[2024-09-03] MEDS: METOPROLOL TARTRATE 25 MG TABLET PO SCH (09:18)
[2024-09-03] MEDS: LEVOTHYROXINE SODIUM 88 MCG TABLET PO SCH (09:18)
[2024-09-03] MEDS: DOCUSATE SODIUM 100 MG CAPSULE PO SCH (09:18)
[2024-09-03] MEDS: FINASTERIDE (5 MG) 5 MG TABLET PO SCH (09:18)
[2024-09-03] MEDS: FAMOTIDINE (20 MG) 20 MG TABLET PO SCH (09:18)
[2024-09-03] MEDS: DIVALPROEX SODIUM 250 MG TABLET.DR PO SCH (09:18)
[2024-09-03] MEDS: APIXABAN 5 MG TABLET PO SCH (09:19)
[2024-09-03 16:06] VITALS: BP 107/93; TEMP 97.9; O2SAT 98
[2024-09-03 19:50] VITALS: BP 127/97; TEMP 97.7; O2SAT 98
[2024-09-03] MEDS: ATORVASTATIN 40 MG TABLET PO SCH (21:48)
[2024-09-03] MEDS: TAMSULOSIN 0.4 MG CAP.SR.24H PO SCH (21:48)
[2024-09-04] MEDS: TEMAZEPAM 7.5 MG CAPSULE PO PRN (01:45)
[2024-09-04 08:00] VITALS: BP_SYST 119; BP_SYST 126; BP_DIAS 68; BP_DIAS 90; TEMP 97.8; TEMP 98.6; O2SAT 98; O2SAT 99
[2024-09-04] MEDS: DIVALPROEX SODIUM 250 MG TABLET.DR PO SCH (08:35)
[2024-09-04 16:00] VITALS: BP 137/95; TEMP 97.7; O2SAT 98
[2024-09-04 19:46] VITALS: BP 100/62; TEMP 97.8; O2SAT 93
[2024-09-05 08:00] VITALS: BP 126/68; TEMP 97.9; O2SAT 95
[2024-09-05 16:00] VITALS: BP 142/64; TEMP 98.6; O2SAT 96
[2024-09-06 08:00] VITALS: BP 110/68; TEMP 97.7; O2SAT 97
[2024-09-06] MEDS: METFORMIN 500 MG TABLET PO SCH (09:27)
[2024-09-06 16:00] VITALS: BP 123/81; TEMP 97.9; O2SAT 97
[2024-09-06] MEDS: TEMAZEPAM 7.5 MG CAPSULE PO PRN (21:30)
[2024-09-07] MEDS ORDERED: Z GUARD REMEDY 4 OZ OINT TP PRN (06:30)
[2024-09-07 08:00] VITALS: BP 108/65; TEMP 98.6; O2SAT 98
[2024-09-07 16:00] VITALS: BP 115/73; TEMP 98.7; O2SAT 96
[2024-09-07 20:13] VITALS: BP 109/89; TEMP 98.6; O2SAT 96
[2024-09-08 08:00] VITALS: BP 103/65; TEMP 97.9; O2SAT 98
[2024-09-08 16:00] VITALS: BP 134/85; TEMP 98.9; O2SAT 95
[2024-09-08 20:32] VITALS: BP 139/87; TEMP 98.2; O2SAT 96
[2024-09-09] MEDS: LORAZEPAM 0.5 MG TABLET PO PRN (00:16)
[2024-09-09 08:00] VITALS: BP 125/68; TEMP 98.6; O2SAT 98
[2024-09-09 15:58] VITALS: BP 134/74; TEMP 98; O2SAT 98
[2024-09-09 19:51] VITALS: BP 154/84; TEMP 98.1; O2SAT 98
[2024-09-10 08:00] VITALS: BP 110/66; TEMP 97.8; O2SAT 98
[2024-09-10] MEDS: DIVALPROEX SODIUM 500 MG TABLET.DR PO SCH (08:50)
[2024-09-10 16:00] VITALS: BP 122/68; TEMP 98.9; O2SAT 98
[2024-09-10 20:03] VITALS: BP 158/97; TEMP 98.3; O2SAT 96
[2024-09-11 08:00] VITALS: BP 130/83; TEMP 97.7; O2SAT 97
[2024-09-11 16:00] VITALS: BP 123/67; TEMP 98.2; O2SAT 95
[2024-09-11 19:52] VITALS: BP 117/85; TEMP 98.1; O2SAT 99
[2024-09-12 08:00] VITALS: BP 127/73; TEMP 98; O2SAT 98
[2024-09-12 14:04] VITALS: BP 108/64; O2SAT 98
[2024-09-12 16:00] VITALS: BP 94/81; TEMP 97.5; O2SAT 98
[2024-09-12 16:26] VITALS: BP 130/79; O2SAT 99
[2024-09-12 19:39] VITALS: BP 128/84; TEMP 97.7; O2SAT 100
[2024-09-13 08:00] VITALS: BP 124/65; TEMP 97.8; O2SAT 94
[2024-09-13 16:00] VITALS: BP 119/96; TEMP 97.6; O2SAT 99
[2024-09-13 21:02] VITALS: BP 123/66; TEMP 98.2; O2SAT 97
[2024-09-14 08:00] VITALS: BP 115/60; TEMP 97.7; O2SAT 95
[2024-09-14 10:53] VITALS: BP 101/69; O2SAT 98
[2024-09-14 16:00] VITALS: BP 102/76; TEMP 98.9; O2SAT 98
[2024-09-14 20:15] VITALS: BP 111/94; TEMP 98.7; O2SAT 98
[2024-09-15 08:00] VITALS: BP 104/72; TEMP 97.7; O2SAT 96
[2024-09-15 16:12] VITALS: BP 131/90; TEMP 97.8; O2SAT 98
[2024-09-15 20:51] VITALS: BP 130/91; TEMP 98.2; O2SAT 98
[2024-09-16 07:20] LABS: PLATELET COUNT (AUTO) 149 K/uL (150-450); RED BLOOD CELL COUNT(AUTO) 3.69 MIL/uL (4.5-6.0); RED CELL DISTRIBUTION WIDTH 14.7 % (11.5-15.0); WHITE BLOOD COUNT (AUTO) 5.9 K/uL (4.3-11.0)
[2024-09-16 07:49] LABS: CALCIUM, SERUM 8.7 mg/dL (8.5-10.1); CREATININE 0.9 mg/dL (0.6-1.3); SODIUM SERUM 141.0 mmol/L (136-145); UREA NITROGEN, BLOOD 29.0 mg/dL (7-18)
[2024-09-16 07:57] LABS: VALPROIC ACID 72.0 ug/mL (50-100)
[2024-09-16 08:00] VITALS: BP 121/62; TEMP 98.1; O2SAT 95
[2024-09-16 08:07] VITALS: BP 121/62
[2024-09-16] MEDS: CEPHALEXIN MONOHYDRATE 500 MG CAPSULE PO SCH (08:13)
== END 2024-09-16 14:30 | DRG 885 ==
LOC: ER 13:44 → GPS 16:58
PROVIDERS: ADMIT Nurse Practitioner Psychiatric/Mental Health; ATTEND Nurse Practitioner Acute Care
DX: F39 Unspecified mood [affective] disorder (principal); R45.1 Restlessness and agitation; E11.65 Type 2 diabetes mellitus with hyperglycemia; I11.0 Hypertensive heart disease with heart failure; F03.93 Unspecified dementia, unspecified severity, with mood disturbance; F03.92 Unspecified dementia, unspecified severity, with psychotic disturbance; F03.911 Unspecified dementia, unspecified severity, with agitation; M48.56XA Collapsed vertebra, not elsewhere classified, lumbar region, initial encounter for fracture; D68.59 Other primary thrombophilia; F29 Unspecified psychosis not due to a substance or known physiological condition; I48.91 Unspecified atrial fibrillation; I10 Essential (primary) hypertension; E78.5 Hyperlipidemia, unspecified; Z66 Do not resuscitate; I50.9 Heart failure, unspecified; Z86.73 Personal history of transient ischemic attack (TIA), and cerebral infarction without residual deficits; E11.40 Type 2 diabetes mellitus with diabetic neuropathy, unspecified; Z79.01 Long term (current) use of anticoagulants; N40.0 Benign prostatic hyperplasia without lower urinary tract symptoms; K21.9 Gastro-esophageal reflux disease without esophagitis; E03.9 Hypothyroidism, unspecified; Z79.84 Long term (current) use of oral hypoglycemic drugs; Z79.899 Other long term (current) drug therapy; Z95.0 Presence of cardiac pacemaker; Z79.890 Hormone replacement therapy; Z73.6 Limitation of activities due to disability
CPT/HCPCS: 36415; 80048-TC; 80053-TC; 80061-TC; 80076-TC; 80164-TC; 81001; 82962-TC; 85025-TC; 87086-TC; 97110-TC; 97116-TC; 97530-TC; G0480; J3490